=== PATIENT | female | born 1980 | race Caucasian/White ===

== ENCOUNTER 2020-04-25 17:02 | Emergency (ER) | payer OTHER, SELFPAY ==
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
--- NOTE | ~2020-04-25 | XR_ITS ---
EXAMINATION: XR lumbar spine 2-3V DATE: 04/25/2020 18:33 INDICATION: Low back pain. TECHNIQUE: 3 views of lumbar spine were obtained. COMPARISON: None. FINDINGS: Bone alignment is normal. Vertebral body heights and intervertebral disc heights are normal . The facet joints are unremarkable. IMPRESSION: 1. Normal lumbar spine. Reviewed, dictated and finalized at location A. IMPRESSION: 1. Normal lumbar spine.
--- NOTE | ~2020-04-25 | XR_ITS ---
EXAMINATION: XR thoracic spine 3V DATE: 04/25/2020 18:34 INDICATION: Thoracic back pain. TECHNIQUE: 3 views of thoracic spine were obtained. COMPARISON: None. FINDINGS: There is 3 degrees dextrocurvature of thoracic spine. Vertebral body heights and interverte bral disc heights are normal. There are endplate osteophytes at multiple levels. IMPRESSION: 1. Mild thoracic spondylosis. Reviewed, dictated and finalized at location A.
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
[2020-04-25 17:43] VITALS: BP 118/81; PULSE 81; RESP 20; TEMP 36.7; O2SAT 99
[2020-04-25 19:29] VITALS: BP 120/74; PULSE 81; RESP 20; TEMP 36.7; O2SAT 99
== END 2020-04-25 19:31 | disposition home or self-care (01) ==
PROVIDERS: Emergency Provider Emergency Medicine
DX: S16.1XXA Strain of muscle, fascia and tendon at neck level, initial encounter (principal); S29.012A Strain of muscle and tendon of back wall of thorax, initial encounter; S39.012A Strain of muscle, fascia and tendon of lower back, initial encounter; F17.200 Nicotine dependence, unspecified, uncomplicated; M47.814 Spondylosis without myelopathy or radiculopathy, thoracic region; M47.812 Spondylosis without myelopathy or radiculopathy, cervical region; V49.40XA Driver injured in collision with unspecified motor vehicles in traffic accident, initial encounter
CPT/HCPCS: 72072; 72100; 72125; 99284

== ENCOUNTER 2020-09-06 15:15 | Outpatient (CLI) | payer OTHER, SELFPAY ==
--- NOTE | ~2020-09-06 | US_ITS ---
EXAMINATION: US OB <= 14 weeks fetus DATE: 09/06/2020 15:52 INDICATION: Encounter for first trimester . TECHNIQUE: Real-time transabdominal pelvic ultrasound was performed. COMPARISON: None. FINDINGS: The uterus measures 11.3 x 6.9 x 7.3 cm. There is an intrauterine gestational sac. A yolk sac is iden tified. The crown rump length measures 2.4 cm, which correlates with an estimated gestational age of 9 weeks and 1 day(s) (+/-) 6 day(s). heart motion is identified measuring 161 beats per minute (bpm) by M-mode Doppler. The ovaries are not visualized. There is no free fluid in the pelvis. IMPRESSION: 1. Single living intrauterine gestation with estimated date of delivery of 04/10/2021. Reviewed, dictated and finalized at location A. IMPRESSION: 1. Single living intrauterine gestation with estimated date of delivery of 03/17.
== END 2020-09-06 15:16 | disposition home or self-care (01) ==
LOC: ANHIMG 15:18
PROVIDERS: Visit Provider Obstetrics & Gynecology
DX: Z34.90 Encounter for supervision of normal pregnancy, unspecified, unspecified trimester (principal); Z3A.00 Weeks of gestation of pregnancy not specified
CPT/HCPCS: 76801

== ENCOUNTER 2020-11-01 10:42 | Outpatient (CLI) | payer OTHER, SELFPAY ==
--- NOTE | ~2020-11-01 | US_ITS ---
EXAMINATION: US OB /maternal detail DATE: 11/01/2020 12:27 INDICATION: survey TECHNIQUE: Multiple obstetric sonographic images performed. FINDINGS: 09/06/2020 There is a single living fetus in variable presentation. The placenta is posterior without placenta previa. Amniotic fluid volume is normal. JESSE measures 10.1 cm cm. cardiac activity and movement is noted with a heart rate of beats per minute. The following anatomy was identified as normal: 4 chamber heart 3 vessel cord cord insertion kidneys urinary bladder stomach spine diaphragm ventricles cisterna magna cerebellum The ventricular outflow tracts are not well visualized. The following biometric data were obtained: BPD: 36mm corresponds to gestational age 17 weeks 0 days. Head circumference: 147 mm corresponds to gestational age 17 weeks 6 days. Abdominal circumference: 118 mm corresponds to gestational age 17 weeks 4 days. Femur length: 25 mm corresponds to gestational age 17 weeks 4 days. Head circumference to abdominal circumference ratio: 1.25 (normal range for expected gestational age is 1.08-1.28). Estimated weight: 201 grams +/- 30 grams using Hadlock method. IMPRESSION: 1: Single living intrauterine with an estimated gestational age of 17weeks 1days by initial ultrasound measurements, with an EDC of 04/10/2021 in . Normal presentation. 2. survey limited for evaluation of the ventricular outflow tracts. Otherwise, unremarkable fe ventura survey. Reviewed, dictated and finalized at location A. GE REGISTER NURSE IMPRESSION: 1: Single living intrauterine with an estimated gestational age of 17 weeks 1days by initial ultrasound measurements, with an EDC of 04/10/2021 in . N ormal presentation. 2. survey limited for evaluation of the ventricular outflow tracts. Othe rwise, unremarkable survey.
== END 2020-11-01 10:43 | disposition home or self-care (01) ==
PROVIDERS: Visit Provider Obstetrics & Gynecology
DX: Z34.92 Encounter for supervision of normal pregnancy, unspecified, second trimester (principal); Z3A.17 17 weeks gestation of pregnancy
CPT/HCPCS: 76805

== ENCOUNTER 2021-02-19 17:11 | Observation (INO) | payer OTHER, SELFPAY ==
--- NOTE | ~2021-02-19 | US_ITS ---
EXAMINATION: US OB BPP wo non-stress DATE: 02/19/2021 18:19 INDICATION: contractions during third trimester TECHNIQUE: Real-time pelvic ultrasound was performed. The interpreting radiologist was not present fo r the study. COMPARISON: None. FINDINGS: There is a single living fetus in vertex presentation. The placenta is posterior. heart rate is 124 beats per minute (bpm). Biophysical profile performed by the technologist: breathing (30 sec sustained breathing in 30 minutes): 2 out of 2 movement (3 gross body movements in 30 minutes): 2 out of 2 tone (one episode of eejwptd-uixmblekt-lhxcdgu limb movement): 2 out of 2 Amniotic fluid pocket (2 cm): 2 out of 2 Total score: 8 out of 8 IMPRESSION: 1. Single living fetus in vertex presentation. 2. Biophysical profile 8 out of 8. Reviewed, dictated and finalized at location A.
[2021-02-19 17:26] VITALS: BP 116/76; PULSE 98
[2021-02-19 17:31] VITALS: BP 125/95; PULSE 99
[2021-02-19 17:45] VITALS: BP 116/71; PULSE 85
[2021-02-19] MEDS: BETAMETHASONE SOD PHOS/ACETATE 30 MG/5 ML VIAL 12 MG IM (17:50)
[2021-02-19 17:55] VITALS: BMI 46.6
--- NOTE | 2021-02-19 17:55 | OBADM ---
This patient, Orquidea Jara, admitted to the OB room OB Post [facility] for observation. Patient/family oriented to hospital policies and general routines including ID bracelet, bed and alarms, visiting hours, pain management, procedures, bathroom and other care routines, personal items, smoking policy, room service/diet, and visiting hours. Patient/Family are encouraged to report perceived risks to care and to ask questions if they do not understand what they are told or what they should do.
[2021-02-19 18:05] VITALS: BP 116/71
--- NOTE | 2021-02-21 00:45 | PM.OBTRLD ---
OB - Triage/Final Diagnosis Visit Information Comments/Additional reasons for admission: I have assessed the risk for this patient, Orquidea Jara, and determined that she would benefit from observation care. Final Diagnosis (1) labor in third trimester: Code(s): O60.03 - labor without delivery, third trimester Status: Acute (2) Polyhydramnios affecting in third trimester: Code(s): O40.3XX0 - Polyhydramnios, third trimester, not applicable or unspecified Status: Acute (3) Breech presentation: Code(s): O32.1XX0 - Maternal care for breech presentation, not applicable or unspecified Status: Acute (4) LGA (large for gestational age) fetus: Status: Acute
== END 2021-02-19 18:34 | disposition home or self-care (01) ==
PROVIDERS: Admitting Provider Obstetrics & Gynecology; Visit Provider Obstetrics & Gynecology
DX: O60.03 Preterm labor without delivery, third trimester (principal); O40.3XX0 Polyhydramnios, third trimester, not applicable or unspecified; O32.1XX0 Maternal care for breech presentation, not applicable or unspecified; Z3A.00 Weeks of gestation of pregnancy not specified
CPT/HCPCS: 59025; 76819; 96372; G0378; G0379; J0702

== ENCOUNTER 2021-02-20 17:24 | Outpatient (CLI) | payer OTHER, SELFPAY ==
[2021-02-20] MEDS: BETAMETHASONE SOD PHOS/ACETATE 30 MG/5 ML VIAL 12 MG IM (17:45)
== END 2021-02-20 17:25 | disposition home or self-care (01) ==
LOC: ANHOBOP 17:30
PROVIDERS: Visit Provider Obstetrics & Gynecology
DX: Z34.90 Encounter for supervision of normal pregnancy, unspecified, unspecified trimester (principal); Z3A.00 Weeks of gestation of pregnancy not specified
CPT/HCPCS: 96372; J0702

== ENCOUNTER 2021-02-23 05:28 | Outpatient (CLI) | payer OTHER, SELFPAY ==
[2021-02-23 06:11] VITALS: PULSE 78; O2SAT 96
--- NOTE | 2021-02-23 06:20 | PC.NURSE ---
Called Dr. Garcia with pt status. Pt states that she had a wet spot on the bed after her shower. No further leaking noted per pt. Rom plus negative. No contractions seen on monitor or felt per pt. Reactive tracing. March D/C home.
--- NOTE | 2021-02-23 07:37 | PM.OBTRLD ---
OB - Triage/Final Diagnosis Visit Information Comments/Additional reasons for admission: I have assessed the risk for this patient, Orquidea Jara, and determined that she would benefit from observation care. Evaluation Vital signs: Vital Signs - 24 hr 02/23/21 06:11 Pulse Oximetry 96 Final Diagnosis (1) False labor: Code(s): O47.9 - False labor, unspecified Status: Acute
== END 2021-02-23 06:30 | disposition home or self-care (01) ==
LOC: ANHOBOP 06:31 → ANHLDR 06:47
PROVIDERS: Visit Provider Obstetrics & Gynecology
DX: O46.90 Antepartum hemorrhage, unspecified, unspecified trimester (principal); Z3A.00 Weeks of gestation of pregnancy not specified
CPT/HCPCS: 59025; 84112; 99199

== ENCOUNTER 2021-04-03 18:18 | Observation (INO) | payer OTHER, SELFPAY ==
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
[2021-04-03 19:46] VITALS: BMI 48.3
--- NOTE | 2021-04-03 19:46 | LDADM ---
This patient, Orquidea Jara, was admitted to Labor/Delivery/Recovery 120 on 04/03/21 at 18:18. Plans for labor, pain management and were discussed with patient. Patient/family oriented to hospital policies and general routines including ID bracelet, bed and alarms, visiting hours, pain management, procedures, bathroom and other care routines, personal items, smoking policy, room service/diet and guest tray routines, infant security routines, and visiting hours. Patient/Family are encouraged to report perceived risks to care and to ask questions if they do not understand what they are told or what they should do. See OBIX for further documentation.
--- NOTE | 2021-04-03 20:20 | PM.OBTRLD ---
OB - Triage/Final Diagnosis Visit Information Comments/Additional reasons for admission: I have assessed the risk for this patient, Orquidea Jara, and determined that she would benefit from observation care. Final Diagnosis (1) False labor after 37 weeks of gestation without delivery: Code(s): O47.1 - False labor at or after 37 completed weeks of gestation Status: Acute
== END 2021-04-03 19:37 | disposition home or self-care (01) ==
PROVIDERS: Admitting Provider Obstetrics & Gynecology; Visit Provider Obstetrics & Gynecology
DX: O47.1 False labor at or after 37 completed weeks of gestation (principal); Z3A.39 39 weeks gestation of pregnancy
CPT/HCPCS: 59025; G0378; G0379

== ENCOUNTER 2021-04-04 07:03 | Inpatient (IN) | payer OTHER, SELFPAY ==
--- NOTE | 2021-03-23 15:25 | PC.NURSE ---
VERIFIED WITH OR SCHEDULE AND PATIENT --C/S WITH TUBAL ON 04/05/21 AT 1030 PATIENT GIVEN REQUISITION FOR LAB DRAW ON 04/04/21
--- NOTE | 2021-04-03 19:19 | HP_ITS ---
This report was moved to the correct visit, [id number] on 04/09/21. Original report was signed by Kyle Garcia MD on 04/03/211927. H&P: HPI History of Present Illness Date/Time: 04/03/21 19:19 41 y/o presents for REPEAT C SECTION AND BILATERAL TUBAL STERILIZATION at 39weeks. complicated by AMA, HSV, GBS, depression, previous C- section (x 1), and COVID (11/12/2020). I EXPLAINED HER CONDITION PROCEDURE AND RISKS INVOLVED INCLUDING BUT NOT LIMITED TO bleeding infection injury to bladder bowel baby pelvic vessels DVT pneumonia wound infection UTI risk of anesthesia risk of hemorrhage she understands accepts and agrees to proceed [facility] tubal consent forms signed and forwarded Chief Complaint: Repeat with bilateral tubal sterilization Term Review of Systems Review of Systems: All systems reviewed & are unremarkable except as noted in HPI and below Constitutional: Constitutional: Reports no additional constitutional complaints Eyes: Eyes: Reports no additional eye complaints ENT: Reports system reviewed and no additional complaints, except as documented Cardiovascular: Cardiovascular: Reports no additional cardiovascular complaints Respiratory: Respiratory: Reports no additional respiratory complaints Gastrointestinal: Gastrointestinal: Reports no additional gastrointestinal complaints Genitourinary: Genitourinary: Reports no additional female genitourinary complaints Musculoskeletal: Musculoskeletal: Reports no additional musculoskeletal complaints Integumentary/Breasts: Skin/Breast: Reports system reviewed and no additional complaints, except as docu Neurologic: Reports system reviewed and no additional complaints, except as documented Psychiatric: Psychiatric: Reports no additional psychiatric complaints Endocrine: Endocrine: Reports no additional endocrine complaints Hematologic/Lymphatic: Hematologic/Lymphatic: Reports no additional hematologic/lymphatic complaints Allergic/Immunologic: Allergic/Immunologic: Reports no additional allergic/immunologic complaints [facility] Past Medical History Medical History (Updated 04/03/21 @ 19:24 by Kyle Garcia MD) Advanced maternal age (AMA) in Depression Encounter for female sterilization procedure macrosomia GBS (group B Streptococcus carrier), +RV culture, currently Genital herpes Obesity Term Surgical History Surgical History (Updated 04/03/21 @ 19:24 by Kyle Garcia MD) Delivery by section Previous section Family History Family History (Updated 03/23/21 @ 15:04 by Melann Michael, RN) Father Diabetes mellitus Amputated below knee Amputated at left ankle Cerebrovascular accident Acute myocardial infarction Mother Cancer Other Patient's mother is Social History Social History (Updated 04/03/21 @ 19:24 by Kyle Garcia MD) Smoking status: Current every day smoker Second hand tobacco smoke exposure: Yes Alcohol intake: former Substance use: former Living arrangements: with family Occupation/Education: unemployed Gender identity (if verbalized by the patient): Female Sexual Orientation (if Verbalized by the Patient): Straight or Heterosexual Spiritual care concerns: No Agree to blood products: Yes Meds Home Medications and Allergies Home Medications Medication Instructions Recorded Confirmed Type albuterol sulfate 1 inh INHALATION QID PRN 03/23/21 03/23/21 History calcium carbonate-vitamin D3 1 tablet PO BID 03/23/21 03/23/21 Hist
[2021-04-04] VITALS (51 sets, daily range): BP systolic 86–116; BP diastolic 47–95; PULSE 58–122; RESP 16–20; TEMP 36.2–36.6; O2SAT 95–100; BMI 48.2
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
--- NOTE | 2021-04-04 07:10 | PM.PROC ---
Procedure Note - Detailed Date of procedure: 04/04/21 Pre-op diagnosis: c/s (1) Term : Code(s): Z34.90 - Encounter for supervision of normal , unspecified, unspecified trimester Status: Acute (2) Delivery by section: Status: Acute Assessment and Plan: Repeat low-transverse section under spinal anesthesia (3) Encounter for female sterilization procedure: Code(s): Z30.2 - Encounter for sterilization Status: Acute Assessment and Plan: Bilateral tubal sterilization under spinal anesthesia (4) Obesity: Code(s): E66.9 - Obesity, unspecified Status: Acute (5) macrosomia: Code(s): O36.60X0 - Maternal care for excessive growth, unspecified trimester, not applicable or unspecified Status: Acute (6) GBS (group B Streptococcus carrier), +RV culture, currently : Code(s): O99.820 - Streptococcus B carrier state complicating Status: Acute (7) Advanced maternal age (AMA) in : Status: Acute (8) Depression: Code(s): F32.9 - Major depressive disorder, single episode, unspecified Status: Acute (9) Genital herpes: Code(s): A60.00 - Herpesviral infection of urogenital system, unspecified Status: Acute Post-op diagnosis: same ( delivered viable male and placenta successful tubal sterilization) Procedure performed: repeat low-transverse section with delivery of viable male and placenta Bilateral tubal sterilization with bilateral salpingectomy Description of procedure: informed consent obtained patient taken to the operating room where she was given a spinal anesthetic placed in the supine position a Camacho catheter inserted her abdomen was prepped and draped in the usual sterile fashion with the traxi device. Time-out was performed elliptical incision was made around the old scar and the old scar was excised using electrocautery. The fascia was incised transversely undermined inferior and superior the rectus muscles were midline and the peritoneum was entered. Transverse incision was made to the uterus and extended bilaterally digitally. I encountered a transverse lie and tried to convert baby to the vertex presentation which was unsuccessful and with much difficulty finally converting the baby to a james breech position and delivered the buttocks 1st legs in abdomen swept the arms across the chest anterior length in the cord and then delivered the vertex with the Joan min maneuver. The baby was stimulated bulb suction cord clamped and cut and baby was handed to the nursery nurse in attendance scores 8 and 9 weight 8 lb 4 oz normal transition normal exam taken to the nursery in stable condition. Placenta cord gases cord blood obtained and then 10 units Pitocin given into the myometrium and the placenta was then delivered intact with a three-vessel cord. The uterus was cleansed of blood clots membranes and externalized. The uterine incision was repaired in 2 layers with 0 Vicryl in a running interlocking fashion 2nd being an imbricating stitch in a running fashion. Hemostasis excellent along the uterine incision. Bilateral tubal sterilization was then performed in a bilateral sequential fashion the fallopian tubes were grasped with Walden clamps traced out to the fimbria. Mesial salpinx endo coagulated peons were placed at the proximal tubes arcuate vessel and the fimbria ovarian vessels. The fallopian tubes were excised using electrocautery and sent to pathology. Two 0 silk sutures were used doubly around the pedicles and electrocauterized and hemostasis was excellent. Irrigation was performed the uterus was returned to the peritoneal cavity the sponge needle counts correct. Anterior peritoneum and rectus muscles reapproximated with 0 Vicryl suture running fashion. Fascia was closed with 2. Quill S RS system bilaterally. Norma
--- NOTE | 2021-04-04 07:10 | PM.OBDSVD ---
DS: Admitting Diagnosis Admitting Diagnosis Admitting Diagnosis: (1) Term : Code(s): Z34.90 - Encounter for supervision of normal , unspecified, unspecified trimester Status: Acute (2) Delivery by section: Status: Acute Assessment and Plan: Repeat low-transverse section under spinal anesthesia (3) Encounter for female sterilization procedure: Code(s): Z30.2 - Encounter for sterilization Status: Acute Assessment and Plan: Bilateral tubal sterilization under spinal anesthesia (4) Obesity: Code(s): E66.9 - Obesity, unspecified Status: Acute (5) macrosomia: Code(s): O36.60X0 - Maternal care for excessive growth, unspecified trimester, not applicable or unspecified Status: Acute (6) GBS (group B Streptococcus carrier), +RV culture, currently : Code(s): O99.820 - Streptococcus B carrier state complicating Status: Acute (7) Advanced maternal age (AMA) in : Status: Acute (8) Depression: Code(s): F32.9 - Major depressive disorder, single episode, unspecified Status: Acute (9) Genital herpes: Code(s): A60.00 - Herpesviral infection of urogenital system, unspecified Status: Acute DS: Discharge Diagnosis Discharge Diagnosis (1) Term delivered: Code(s): O80 - Encounter for full-term uncomplicated delivery Status: Acute (2) Delivery by section: Status: Acute (3) Encounter for female sterilization procedure: Code(s): Z30.2 - Encounter for sterilization Status: Acute (4) Obesity: Code(s): E66.9 - Obesity, unspecified Status: Acute (5) macrosomia: Code(s): O36.60X0 - Maternal care for excessive growth, unspecified trimester, not applicable or unspecified Status: Acute (6) GBS (group B Streptococcus carrier), +RV culture, currently : Code(s): O99.820 - Streptococcus B carrier state complicating Status: Acute (7) Advanced maternal age (AMA) in : Status: Acute (8) Depression: Code(s): F32.9 - Major depressive disorder, single episode, unspecified Status: Acute (9) Genital herpes: Code(s): A60.00 - Herpesviral infection of urogenital system, unspecified Status: Acute OB - DS: Summary Hospital Course Time spent discussing smoking cessation with patient: 3 to 10 minutes OB Procedures : Ultrasound OB Procedures Intrapartum: , Tubal ligation and GBS prophylaxis OB Procedures: : P.P. tubal ligation Peripartum Data Delivery Method: Section Laceration Description: None Episiotomy description: None Procedures: Procedures Operation Date: 04/05/21 10:30 Repeat Low transverse C section with delivery of Viable male and placenta Bilateral tubal sterilization with bilateral salpingectomy complications: none 1: Gender: Male Disposition of : home Status at Discharge Functional status at discharge: independent ambulation Overall status at discharge: patient is back to baseline Time Spent with Patient Time attestation: Total time spent providing and/or coordinating discharge services: Time spent: Less than 30 minutes Exam Const: General: cooperative, healthy appearing, comfortable, no acute distress, well developed, alert, awake and Physically active Nutritional Appearance: average body habitus Orientation/consciousness: patient oriented x3 Limitations: no limitations HENMT: Head: normal to inspection Eyes: General: appearance normal, both eyes and all related structures Neck: Neck: normal visual inspection and full ROM Chest: Chest palpation & inspection: normal inspection of the chest Resp: Effort & Inspection: normal respiratory effort Auscultation: clear to auscultation bilaterally Cardio: Palpatio
[2021-04-04 07:45] LABS: Basophils Percent Auto 0.4 % (0.2-1.2); Eosinophils Absolute Auto 0.1 K/mm3 (0-0.3); Eosinophils Percent Auto 0.5 % (0-4.4); Hemoglobin 11.9 g/dL (12.0-15.0); Immature Granulocyte Absolute 0.04 K/mm3 (0.00-0.031); Immature Granulocyte Percent A 0.4 % (0-0.5); Lymphocytes Percent Auto 16.9 % (18.3-44.2); Mean Corpuscular HGB Conc 33.1 g/dl (32-36); Mean Corpuscular Hemoglobin 28.8 pg (26-34); Mean Corpuscular Volume 87.2 fl (80-100); Mean Platelet Volume 9.8 fl (7.4-10.4); Monocytes Absolute Auto 0.6 K/mm3 (0.1-0.6); Monocytes Percent Auto 6.3 % (2.6-8.5); Neutrophils Absolute Auto 7.2 K/mm3 (1.3-6.7); Neutrophils Percent Auto 75.5 % (45.5-73.1); Platelet Count Result 209 k/mm3 (150-375); Red Blood Count 4.13 M/mm3 (4.2-5.4); Red Cell Distribution Width 13.7 % (11.5-14.5); White Blood Count 9.5 K/mm3 (4.5-10.0)
[2021-04-04] MEDS: LACTATED RINGERS 1,000 ML 125 ML IV CONT (07:45)
--- NOTE | 2021-04-04 08:01 | WPDANESEPPF ---
Anes - Initial Pre Proc Eval Procedure: Operation Date: 04/05/21 10:30 Proposed Procedures p Repeat Section With Bilateral Salpingectomy For Sterilization - Kyle Garcia MD Date/Time: 04/04/21 08:01 Surgeon: Kyle Garcia MD Pre Op Diagnosis: c/s Patient Data Age: 41 Gender: F Height: 1.55 m Weight: 115.91 kg Last Vital Signs Pulse 82 04/04/21 07:23 BP 112/63 04/04/21 07:23 Allergies Allergy/AdvReac Type Severity Reaction Status Date / Time No Known Allergies Allergy Verified 03/23/21 14:49 Home Medications Medication Instructions Recorded Confirmed Type albuterol sulfate 1 inh INHALATION QID PRN 03/23/21 03/23/21 History calcium carbonate-vitamin D3 1 tablet PO BID 03/23/21 03/23/21 History cetirizine [Zyrtec] 10 mg PO DAILY PRN 03/23/21 03/23/21 History fluticasone propionate 1 spray INTRANASAL Q12H 03/23/21 03/23/21 History nifedipine [Procardia XL] 30 mg PO DAILY 03/23/21 03/23/21 History omeprazole 40 mg PO DAILY 03/23/21 03/23/21 History prenat.vits,antonino,xfj-vsrb-hokfu 1 tablet PO DAILY 03/23/21 03/23/21 History Laboratory Tests 04/04/21 04/04/21 04/04/21 07:37 07:37 07:37 WBC 9.5 K/mm3 K/mm3 (4.5-10.0) RBC 4.13 M/mm3 L M/mm3 (4.2-5.4) Hgb 11.9 g/dL L g/dL (12.0-15.0) Hct 36.0 % L % (37.0-47.0) MCV 87.2 fl fl (80-100) MCH 28.8 pg pg (26-34) MCHC 33.1 g/dl g/dl (32-36) RDW 13.7 % % (11.5-14.5) Plt Count 209 k/mm3 k/mm3 (150-375) MPV 9.8 fl fl (7.4-10.4) Immature Gran % (Auto) 0.4 % % (0-0.5) Neut % (Auto) 75.5 % H % (45.5-73.1) Lymph % (Auto) 16.9 % L % (18.3-44.2) Milam % (Auto) 6.3 % % (2.6-8.5) Eos % (Auto) 0.5 % % (0-4.4) Baso % (Auto) 0.4 % % (0.2-1.2) Lymph # (Auto) 1.60 K/mm3 K/mm3 (0.9-3.2) Milam # (Auto) 0.6 K/mm3 K/mm3 (0.1-0.6) Eos # (Auto) 0.1 K/mm3 K/mm3 (0-0.3) Baso # (Auto) 0.0 K/mm3 K/mm3 (0.0-0.1) Abs Immat Gran (auto) 0.04 K/mm3 H K/mm3 (0.00-0.031) Absolute Neuts (auto) 7.2 K/mm3 H K/mm3 (1.3-6.7) Absolute Nucleated RBC 0.0 K/mm3 K/mm3 (0.0-0.012) Nucleated RBC % 0.0 % % (0.0-0.2) RPR Pending HIV 1&2 Ab/P24 Ag 4thGn Pending Patient hx anesthesia problems: none Family hx anesthesia problems: none PMFSH Past Medical History Medical History (Updated 04/04/21 @ 08:17 by Zaid Olea DO) Advanced maternal age (AMA) in Asthma Depression Encounter for female sterilization procedure macrosomia GBS (group B Streptococcus carrier), +RV culture, currently Genital herpes Obesity Term Surgical History Surgical History (Updated 04/03/21 @ 19:24 by Kyle Garcia MD) Delivery by section Previous section Family History Family History (Updated 03/23/21 @ 15:04 by Joya Rodriguez RN) Father Diabetes mellitus Amputated below knee Amputated at left ankle Cerebrovascular accident Acute myocardial infarction Mother Cancer Other Patient's mother is Social History Social History (Updated 04/03/21 @ 19:24 by Kyle Garcia MD) Smoking status: Former smoker Second hand tobacco smoke exposure: Yes Alcohol intake: former Substance use: former Gender identity (if verbalized by the patient): Female Spiritual care concerns: No Agree to blood products: Yes Anes - Eval Final PreProcedure Day of Procedure 04/04/21 08:01 Patient weight: morbidly obese Heart: regular rate and rhythm Lungs: clear to auscultation and normal air movement Airway: Mallampati scale class III Neurological: alert and oriented Last oral intake: >/= 8 hours ASA classification: III Emergent: no Anesthetic plan: proceed Anesthesia type and monitoring: micki
[2021-04-04 08:38] LABS: HIV 1/2 Ab P24 Ag Result Negative (Negative)
[2021-04-04 10:04] LABS: Amphetamine Screen Urine Negative (Negative); Barbiturate Screen Urine Negative (Negative); Benzodiazepines Screen Urine Negative (Negative); Cannabinoid Screen Urine Negative (Negative); Cocaine Screen Urine Negative (Negative); Methadone Screen Urine Negative (Negative); Opiate Screen Urine Negative (Negative); Phencyclidine Screen Urine Negative (Negative)
--- NOTE | 2021-04-04 10:25 | PM.OBPRVD ---
OB - Delivery Note Procedure Delivery date: 04/04/21 Procedure: Procedures Operation Date: 04/05/21 10:30 Repeat low-transverse section with delivery of viable male infant and placenta Bilateral tubal sterilization with bilateral salpingectomy events: Previous Intrapartal events: Other ( malpresentation transverse lie back down) Induction method: none Delivery monitor: external FHT and external uterine Route of delivery: ( repeat low-transverse with bilateral tubal sterilization) Episiotomy description: None Laceration Description: None Specimen: Yes Anesthesia type: Spinal Disposition: floor Complications: none [place] Baby Date of : 04/04/21 Time of : 09:39 Weeks of gestation at delivery: 39 Infant gender: Male Weight (pounds): 8 Weight (ounces): 4 presentation: transverse Placenta delivery description: Manual Removal and Normal Configuration cord vessel description: 3 Vessels score one minute: 8 score five minutes: 9 Narrative: see op report
[2021-04-04] MEDS: OXYTOCIN 30 UNITS/NS 500 ML 30 UNITS/500 ML BAG 125 UNITS IV CONT (11:01)
[2021-04-04] MEDS: ONDANSETRON INJ 4 MG/2 ML VIAL IV PUSH ×2 (12:02→17:56)
--- NOTE | 2021-04-04 12:49 | OBPPTRN ---
Patient transferred to post room # 279 via bed. Oriented to unit, room, information board, rooming in, admission packet and security measures. Patient verbalizes understanding.
--- NOTE | 2021-04-04 14:46 | PC.NURSE ---
Mother called out for assist to be returned. Mother reports had a bottle for first feeding and wishes to put to breast. Observed infant may have tight frenulum. Mother reports this is 6th child 5th to breastfeed. Reviewed infant feeding cues, frequencies, duration of feedings, feeding elimination flow sheet, and signs of adequate intake. Demonstrated stimulation techniques to wake infant for feeding. Assisted with to breast. Reviewed positioning/alignment in cross cradle, holding breast in ?U? hold and guided asymmetrical latch on. made attempts and would hold nipple in with no suckling noted. Suggested mother skin to skin and attempt again in 15-20 minutes.
[2021-04-04] MEDS: DEXTROSE 5%/0.45% SOD CHL 1,000 ML 125 ML IV CONT (14:57)
[2021-04-04] MEDS: KETOROLAC 30 MG/ML VIAL (*BKC) IV PUSH (17:55)
[2021-04-04] MEDS: DEXTROSE 5%/LACTATED RINGERS 1,000 ML 999 ML IV CONT (19:00)
[2021-04-04] MEDS: METOCLOPRAMIDE HCL INJ 10 MG/2 ML VIAL IV PUSH (19:18)
[2021-04-04] MEDS: DEXTROSE 5%/LACTATED RINGERS 1,000 ML 150 ML IV CONT (20:14)
[2021-04-05] VITALS: BP 103/64; PULSE 69; RESP 16; TEMP 36.5; O2SAT 98
[2021-04-05] MEDS: KETOROLAC 30 MG/ML VIAL (*BKC) IV PUSH (00:23)
[2021-04-05] MEDS: DEXTROSE 5%/LACTATED RINGERS 1,000 ML 150 ML IV CONT (03:02)
[2021-04-05 03:50] VITALS: BP 94/50; PULSE 68; RESP 16; TEMP 36.6; O2SAT 97
[2021-04-05 05:29] LABS: Basophils Percent Auto 0.2 % (0.2-1.2); Eosinophils Percent Auto 0.2 % (0-4.4); Hematocrit 29.5 % (37.0-47.0); Hemoglobin 9.5 g/dL (12.0-15.0); Immature Granulocyte Absolute 0.06 K/mm3 (0.00-0.031); Immature Granulocyte Percent A 0.5 % (0-0.5); Lymphocytes Absolute Auto 1.84 K/mm3 (0.9-3.2); Lymphocytes Percent Auto 14.3 % (18.3-44.2); Mean Corpuscular HGB Conc 32.2 g/dl (32-36); Mean Corpuscular Volume 89.9 fl (80-100); Mean Platelet Volume 9.8 fl (7.4-10.4); Monocytes Absolute Auto 0.9 K/mm3 (0.1-0.6); Monocytes Percent Auto 6.6 % (2.6-8.5); Neutrophils Percent Auto 78.2 % (45.5-73.1); Platelet Count Result 186 k/mm3 (150-375); Red Blood Count 3.28 M/mm3 (4.2-5.4); White Blood Count 12.8 K/mm3 (4.5-10.0)
--- NOTE | 2021-04-05 07:55 | PC.NURSE ---
Observed mother is able to independently latch with appropriate positioning/alignment. She denies any nipple discomfort, is feeding as required and waking infant to feed if needed. Mother chooses to supplement at times. Infant is currently meeting outcomes for weight, output, jaundice and feeding frequencies. Mother states she does not require feeding assist/education at this time. Reviewed resources in the Mom/Baby guide. Instructed mother to call out for future feedings if assistance is needed.
[2021-04-05 08:05] VITALS: BP 105/65; PULSE 88; RESP 18; TEMP 36.7; O2SAT 98
[2021-04-05 08:30] LABS: Rapid Plasma Reagin Non-Reactive (NonReactive)
[2021-04-05] MEDS: DOCUSATE SODIUM 100 MG CAPSULE PO ×2 (08:41→15:56)
[2021-04-05] MEDS: MULTIVIT/MIN/PREN/FOL AC/IRON TABLET 1 TAB PO (08:41)
[2021-04-05] MEDS: IBUPROFEN 600 MG TABLET PO ×3 (08:41→22:32)
[2021-04-05] MEDS: POLYSACCHARIDE IRON COMPLEX 150 MG CAPSULE PO ×2 (08:41→15:56)
[2021-04-05] MEDS: HYDROcodone/acetaminophen (*CRX) 5-325 MG TABLET 1 TAB PO ×2 (08:41→15:55)
[2021-04-05] MEDS: LANOLIN (LANSINOH) 7.5 GM CREAM 1 APPLIC TOPICAL (08:51)
--- NOTE | 2021-04-05 09:49 | WPDANLDNPN2 ---
Anes-Prog Note L&D-Neuraxial Date/Time: 04/05/21 09:49 Neuraxial medications: intrathecal PF morphine Opiod-related complaints: none Patient feedback: Patient satisfied with post-operative pain management.
--- NOTE | 2021-04-05 09:49 | WPDANLDPN2 ---
Anes-Prog Note L&D Date/Time: 04/05/21 09:49 Comfortable throughout: labor Neuraxial method: epidural Epidural/Spinal procedure site: clean & non-tender Neuro status: Neuro function grossly intact. Cardiovascular status: normal Respiratory status: normal Airway patency: baseline Mental status: baseline Post-Op hydration status: normal Vital Signs: Last Vital Signs Temp 36.6 C 04/05/21 03:50 Pulse 68 04/05/21 03:50 Resp 16 04/05/21 03:50 BP 94/50 L 04/05/21 03:50 Pulse Ox 97 04/05/21 03:50 Pain score (VAS): 0 I/O: Intake & Output 04/04/21 04/05/21 04/05/21 23:59 07:59 15:59 Intake Total 2200 1745 Output Total 650 725 250 Balance 1550 1020 -250 Post-procedural complaints: none Patient feedback: Patient satisfied with anesthetic care.
[2021-04-05 19:00] VITALS: BP 108/59; PULSE 86; RESP 16; TEMP 36.2; O2SAT 99
[2021-04-05] MEDS: HYDROcodone/acetaminophen (*CRX) 10-325 MG TABLET 1 TAB PO ×2 (19:23→22:32)
--- NOTE | 2021-04-05 20:00 | PC.NURSE ---
Patient viewed the discharge video Mother & Baby Care, The First Two Weeks online. Patient was given the opportunity and encouraged to ask questions. Patient verbalized understanding of information shared and has been given the mother/baby guide for home reference.
[2021-04-06] MEDS: HYDROcodone/acetaminophen (*CRX) 10-325 MG TABLET 1 TAB PO ×2 (04:01→10:55)
[2021-04-06] MEDS: IBUPROFEN 600 MG TABLET PO ×2 (04:01→10:56)
--- NOTE | 2021-04-06 07:38 | P.DS_ITS ---
DS: Admitting Diagnosis Admitting Diagnosis Admitting Diagnosis: OB - DS: Summary OB Procedures : None OB Procedures Intrapartum: OB Procedures: : None Peripartum Data Procedures: Procedures Operation Date: 04/04/21 09:00 Actual Procedure Side Surgeon p Repeat Section With Bilateral Salpingectomy For Sterilization Kyle Garcia MD Time Spent with Patient Time attestation: Total time spent providing and/or coordinating discharge services: DS: Data Data Completed and Pending Pending studies at discharge: Pending at discharge 04/04/21 09:55 Surgical [PTH] Routine Labs on day of discharge: Labs from last 24 hours 04/04/21 07:37 RPR Non-reactive Discharge Plan Discharge Attending physician on discharge: Kyle Garcia Discharging Clinician: Kyle Garcia Anticipated Discharge Date/Time: 04/07/21 07:18 Patient Disposition: Home, Self-Care Activity: may shower, no straining, no driving, may drive after 2 weeks and as tolerated Diet: as tolerated and regular Wound Care Instructions: follow printed instructions Patient Instructions: Antibiotic Form Stand Alone Forms: General Discharge Information Follow-up/Referrals: Kyle Garcia MD [Physician] - 3 Weeks Discharge Medications: New hydrocodone-acetaminophen 5-325 mg Tablet 1 tablet PO Q6H PRN (Reason: breakthrough pain) Qty: 28 RF: 0 ibuprofen 600 mg Tablet 600 mg PO Q6H Qty: 90 RF: 2 Continued omeprazole 40 mg Capsule,Delayed Release(Dr/Ec) 40 mg PO DAILY RF: 0 albuterol sulfate 90 mcg/actuation Hfa Aerosol Inhaler 1 inh INHALATION QID PRN (Reason: Shortness Of Breath) RF: 0 fluticasone propionate 50 mcg/actuation Tracy,Suspension 1 spray INTRANASAL Q12H RF: 0 prenat.vits,antonino,hqe-reie-sscer Tablet 1 tablet PO DAILY RF: 0 calcium carbonate-vitamin D3 600 mg(1,500mg) -400 unit Tablet 1 tablet PO BID RF: 0 cetirizine [Zyrtec] 10 mg Tablet 10 mg PO DAILY PRN (Reason: Dyspnea) RF: 0 Discontinued nifedipine [Procardia XL] 30 mg Tablet Extended Release 24hr 30 mg PO DAILY RF: 0 Date of admission: 04/04/21 07:03 Primary Care Provider: PHYSICIAN,PLANT WRAPPER Admitting Provider: Kyle Garica Attending physician on admission: Kyle Garcia Condition: Stable
[2021-04-06] MEDS: DOCUSATE SODIUM 100 MG CAPSULE PO (10:55)
[2021-04-06] MEDS: MULTIVIT/MIN/PREN/FOL AC/IRON TABLET 1 TAB PO (10:55)
[2021-04-06] MEDS: POLYSACCHARIDE IRON COMPLEX 150 MG CAPSULE PO (10:56)
[2021-04-06 11:00] VITALS: BP 122/74; PULSE 86; PULSE 90; RESP 16; RESP 18; TEMP 36.5; O2SAT 98; O2SAT 99
== END 2021-04-06 13:20 | disposition home or self-care (01) | DRG 540 ==
LOC: ANHLDR 07:18 → ANHOB2 12:52
PROVIDERS: Admitting Provider Obstetrics & Gynecology; Visit Provider Obstetrics & Gynecology
DX: O34.211 Maternal care for low transverse scar from previous cesarean delivery (principal); Z37.0 Single live birth; Z3A.39 39 weeks gestation of pregnancy; O99.824 Streptococcus B carrier state complicating childbirth; Z86.16 Personal history of COVID-19; Z30.2 Encounter for sterilization; O99.344 Other mental disorders complicating childbirth; F32.9 Major depressive disorder, single episode, unspecified; O99.214 Obesity complicating childbirth; E66.01 Morbid (severe) obesity due to excess calories; O98.32 Other infections with a predominantly sexual mode of transmission complicating childbirth; A60.00 Herpesviral infection of urogenital system, unspecified; O36.63X0 Maternal care for excessive fetal growth, third trimester, not applicable or unspecified; O32.1XX0 Maternal care for breech presentation, not applicable or unspecified; O99.52 Diseases of the respiratory system complicating childbirth; J45.909 Unspecified asthma, uncomplicated
CPT/HCPCS: 36415; 80307; 85025; 86592; 86703; 86850; 86900; 86901; 88302; 88307; A9270; G0432; J0131; J1100; J1885; J2274; J2370; J2405; J2590; J2765; J7120; J7121

== ENCOUNTER 2025-06-18 22:44 | Emergency (ER) | payer SELFPAY ==
[2025-06-18 22:47] VITALS: BP 127/80; PULSE 71; RESP 18; TEMP 36.1; O2SAT 96
--- OUTSIDE RECORDS SUMMARY | 2025-06-18 22:47 | XMS_ITS | Clinical Summary ---
Author Organization [facility] Address [address] [place] [id number] Care Team Providers Care Frame Assembler Name Role Phone Evelyn Patel Primary Care Provi cookie Allergies No known active allergies Medications ketorolac (TORADOL) 10 mg tablet Take 1 tablet (10 mg total) by mouth every 6 (six) hours as needed for pain 20 tablet 10/23/2022 Active Social History Tobacco Use Types Packs/Day Years Used Date Smoking Tobacco: Never Assessed Personal Safety Answer Date Recorded Getting School Help Needed Not on file 01/16 Comments Unknown Sex and Gender Information Value Date Recorded Sex Assigned at Not on file Legal Sex Female 6:38 PM ARTS MANAGER Gender Identity Not on file Sexual Orientation Not on file Last Filed Vital Signs Vital Sign Reading Time Taken Comments Blood Pressure 133/83 10/23/2022 2:28 PM ARTS MANAGER Pulse 54 10/23/2022 2:28 PM ARTS MANAGER Temperature 37 C (98.6 F) 10/23/2022 11:01 AM ARTS MANAGER Respiratory Rate 16 10/23/2022 2:28 PM ARTS MANAGER Oxygen Saturation 100% 10/23/2022 2:28 PM ARTS MANAGER Inhaled Oxygen Concentration - - Weight 93 kg (205 lb) 10/23/2022 11:01 AM ARTS MANAGER Height 154.9 cm (5' 1) 10/23/2022 11:01 AM ARTS MANAGER Body Mass Index 38.73 10/23/2022 11:01 AM ARTS MANAGER Plan of Treatment Health Maintenance Due Date Last Done Comments Breast Cancer Screening-Mammogram 1982 Cervical Cancer Screening 1982 Depression Screening 1982 Hepatitis C Screening 1982 Varicella Vaccines (1 of 2 - 13+ 2-dose series) 1995 Hepatitis B Screening 02/06/2000 Regular Well Visit/Exam 18-64 02/06/2000 HPV Vaccines (1 - 3-dose SCD M series) 2009 Covid-19 Vaccine (3 - 4-2 5 season) 2024 01/02/2022, 12/12/2021 Influenza Vaccine (#1) 2025 , 01/15/2017 DTaP/Tdap/Td Vaccine (4 - Td or Tdap) 01/07/2031 01/07/2021, 06/18/2017, 07/13/2016 Pneumococcal vaccine <65 Aged Out No longer eligible based on patient's age to complete this topic Insurance Care Teams Frame Assembler Relationship Specialty Start Date End Date Evelyn Patel PA [address] [place] [id number] PCP - General Physician Pharmacist'S Aide 10/23/22
--- OUTSIDE RECORDS SUMMARY | 2025-06-18 22:47 | XMS_ITS | Clinical Summary ---
Author Organization [facility] Address [address] [place] [address] Care Team Providers Care Garment Presser Name Role Phone Unavailable Primary Care Provider Unavailabl e Source Comments [facility],non-owned Affiliates and Associated Physician Practices is amultiple site organization consisting of ambulatory clinics and hospital sitesin [place], [place], [place] and [place]. This disclosure is being madepursuant to the Care Everywhere program and may not contain all information available regarding this patient. Last updated 18.[facility] Allergies No known active allergies Active Problems Patient Care Coordination No te Formatting of this note migh t be different from the original. Negative AFP tetra; page 14 in records Problem Noted Date Diagnosed Date AMA (advanced maternal age) multigravida 35+ Obesity 09/14/2020 Resolved Problems Problem Noted Date Diagnosed Date Resolved Date Increased MSAFP 01/04/2014 04/28/2017 Overview (01/04/2014): 2.52 MoM Social History Tobacco Use Types Packs/Day Years Used Date Smoking Tobacco: Never Assessed Comments No Sex and Gender Information Value Date Recorded Sex Assigned at Not on file Legal Sex Female 2:02 PM ROOM SERVICE FOOD SERVER Gender Identity Not on file Sexual Orientation Not on file Last Filed Vital Signs Vital Sign Reading Time Taken Comments Blood Pressure 106/68 05/02/2014 8:25 AM CDT Pulse - - Temperature 36.2 C (97.2 F) 03/05/2021 3:09 PM CDT Respiratory Rate - - Oxygen Saturation - - Inhaled Oxygen Concentration - - Weight - - Height - - Body Mass Index - - Plan of Treatment Health Maintenance Due Date Last Done Comments LIPID TESTING 1982 MAMMOGRAM 1982 HIV SCREENING 1997 HEPATITIS C SCREENING 02/01/2000 DTAP/TDAP/TD VACCINES (1 - Tdap) 2001 HEPATITIS B VACCINE (1 of 3 - 19+ 3-dose series) 2001 HPV VACCINE (1 - 3-dose SCDM series) 2009 COVID-19 VACCINE (1 - 2023-2 5 season) 2024 DEPRESSION SCREENING 11/16/2024 INFLUENZA VACCINE (#1) 2025 0, 01/15/2017 ZOSTER VACCINE (1 of 2) 02/06/2032 HIB VACCINE Aged Out No longer eligi ble based on patient's age to complete this topic MENINGOCOCCAL (Group B) VACCINE SHARED DECISION-MAKING Aged Out No longer eligible based on patient's age to complete this topic MENINGOCOCCAL GROUPS A/C/Y/W VACCINE Aged Out No longer eligible b ased on patient's age to complete this topic PNEUMOCOCCAL VACCINE Aged Out No long er eligible based on patient's age to complete this topic Insurance MEDICAID - [place] [facility]
--- OUTSIDE RECORDS SUMMARY | 2025-06-18 22:47 | XMS_ITS | Referral Summary ---
Author Organization [facility] Address [address] [place] [id number] Care Team Providers Care Rv Mechanic Name Role Phone Evelyn Patel Primary Care [...] on file Legal Sex Female 6:38 PM CLAIM MANAGER Gender Identity Not on file Sexual Orientation Not on file Last Filed Vital Signs Vital Sign Reading Time Taken Comments Blood Pressure 133/83 10/23/2022 2:28 PM CLAIM MANAGER Pulse 54 10/23/2022 2:28 PM CLAIM MANAGER Temperature 37 C (98.6 F) 10/23/2022 11:01 AM CLAIM MANAGER Respiratory Rate 16 10/23/2022 2:28 PM CLAIM MANAGER Oxygen Saturation 100% 10/23/2022 2:28 PM CLAIM MANAGER Inhaled Oxygen Concentration - - Weight 93 kg (205 lb) 10/23/2022 11:01 AM CLAIM MANAGER Height 154.9 cm (5' 1) 10/23/2022 11:01 AM CLAIM MANAGER Body Mass Index 38.73 10/23/2022 11:01 AM CLAIM MANAGER Plan of Treatment Not on file Insurance [facility] Care Teams Rv Mechanic Relationship Specialty Start Date End Date Evelyn Patel PA [address] [place] [id number] PCP - General Physician Tableau Administrator 10/23/22
--- OUTSIDE RECORDS SUMMARY | 2025-06-18 22:47 | XMS_ITS | Clinical Summary ---
Author Organization [facility] Address [facility]ly [facility] [place] [address] Care Team Providers Care Cargo Inspector Name Role Phone None, Provider MD Primary Care Provider Unavaila ble Allergies No known active allergies Medications ibuprofen (MOTRIN) 600 MG tablet Take 1 tablet (600 mg total) by mouth every 6 (six) hours as needed. 20 tablet 04/24/2024 Active Social History Tobacco Use Types Packs/Day Years Used Date Smoking Tobacco: Some Days Cigarettes Smokeless Tobacco: Never Tobacco Cessation:Ready to Q uit: Not Asked; Counseling Given: Not Answered Alcohol Use Standard Drinks/Week Comments Yes 0 (1 standard drink = 0.6 oz pur e alcohol) rarely Comments No Sex and Gender Information Value Date Recorded Sex Assigned at Not on file Legal Sex Female 8:32 PM CDT Gender Identity Not on file Sexual Orientation Not on file Last Filed Vital Signs Vital Sign Reading Time Taken Comments Blood Pressure 137/85 04/24/2024 2:59 PM CDT Pulse 72 04/24/2024 2:59 PM CDT Temperature 36.9 C (98.4 F) 04/24/2024 2:59 PM CDT Respiratory Rate 20 04/24/2024 2:59 PM CDT Oxygen Saturation 100% 04/24/2024 2:59 PM CDT Inhaled Oxygen Concentration - - Weight 90.7 kg (200 lb) 04/24/2024 2:59 PM CDT Height 154.9 cm (5' 1) 04/24/2024 2:59 PM CDT Body Mass Index 37.79 04/24/2024 2:59 PM CDT Plan of Treatment Health Maintenance Due Date Last Done Comments Cervical Cancer Screening Pap Smear (Age 30 to 64) Every 3 Years 1982 Annual Physical 1985 Hepatitis C 02/06/2000 Hepatitis B Vaccines (1 of 3 - 19+ 3-dose series) 2001 Pneumococcal Vaccine: Pediatrics (0 to 5 Years) and At-Risk Patients (6 to 49 Years) (1 of 2 - PCV) 2001 HPV Vaccines (1 - 3-dose SCDM series) 2009 Cervical Cancer Screening Pap with HPV Testing (Age 30 to 64) Every 5 Years 02/06/2012 Cervical Cancer Screening with HPV 02/06/2012 Mammogram Screening 2022 COVID-19 Vaccine ( - season) 2024 01/02/2022, 12/12/2021 DTaP, Tdap and Td Vaccines (4 - Td or Tdap) 01/07/2031 01/07/2021, 06/18/2017, 07/13/2016, Additional history exists Meningococcal B Vaccine Aged Out No l onger eligible based on patient's age to complete this topic Meningococcal Vaccine Aged Out No josephine jelena eligible based on patient's age to complete this topic RSV Immunizations Under 20 Months Aged Out No longer eligible based on patient's age to complete this topic Insurance [employer] Care Teams Cargo Inspector Relationship Specialty Start Date End Date None, Provider, MD PCP - General UNKNOWN PHYSICIAN SPECIALTY 04/24/24
--- NOTE | 2025-06-19 00:29 | PC.NURSE ---
Patients daughter comes to desk repeatedly asking how much longer, when are we next? Patients daughter informed that patients go back to rooms based off acuity and that she will be called for a room when one is available an that wait times are not allowed to be given due to ever changing times.
--- OUTSIDE RECORDS SUMMARY | 2025-06-19 01:23 | XMS_ITS | Referral Summary ---
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 Gender Identity Not on file Sexual Orientation Not on file Last Filed Vital Signs Vital Sign Reading Time Taken Comments Blood Pressure 133/83 10/23/2022 2:28 PM RUBBER FLAP TUBER MACHINE OPERATOR Pulse 54 10/23/2022 2:28 PM RUBBER FLAP TUBER MACHINE OPERATOR Temperature 37 C (98.6 F) 10/23/2022 11:01 AM RUBBER FLAP TUBER MACHINE OPERATOR Respiratory Rate 16 10/23/2022 2:28 PM RUBBER FLAP TUBER MACHINE OPERATOR Oxygen Saturation 100% 10/23/2022 2:28 PM RUBBER FLAP TUBER MACHINE OPERATOR Inhaled Oxygen Concentration - - Weight 93 kg (205 lb) 10/23/2022 11:01 AM RUBBER FLAP TUBER MACHINE OPERATOR Height 154.9 cm (5' 1) 10/23/2022 11:01 AM RUBBER FLAP TUBER MACHINE OPERATOR Body Mass Index 38.73 10/23/2022 11:01 AM RUBBER FLAP TUBER MACHINE OPERATOR Plan of Treatment Not on file Insurance [facility] Care Teams Bowling Alley Mechanic Relationship Specialty Start Date End Date Evleyn Patel PA [address] [place] [id number] PCP - General Physician Supervisor Painting Department 10/23/22
--- OUTSIDE RECORDS SUMMARY | 2025-06-19 01:23 | XMS_ITS | Clinical Summary ---
Author Organization [facility] Address [facility] [place] [address] Care Team Providers Care Structural Iron Erector Name Role Phone None, Provider MD Primary [...] complete this topic Insurance [employer] Care Teams Structural Iron Erector Relationship Specialty Start Date End Date None, Provider, MD PCP - General UNKNOWN PHYSICIAN SPECIALTY 04/24/24
--- OUTSIDE RECORDS SUMMARY | 2025-06-19 01:23 | XMS_ITS | Clinical Summary ---
Author Organization [facility] [employer] Address [address] [place] [address] Care Team Providers Care Gsa Coordinator Name Role Phone Unavailable Primary Care Provider Unavailabl e Source Comments [facility] [employer],non-owned Affiliates and Associated Physician Practices is amultiple site organization consisting of ambulatory clinics and hospital sitesin [place], [place], [place] and [place]. This disclosure is being madepursuant to the Care Everywhere program and may not contain all information available regarding this patient. 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
--- OUTSIDE RECORDS SUMMARY | 2025-06-19 01:23 | XMS_ITS | Clinical Summary ---
Author Organization [facility] Address [address] [place] [id number] Care Team Providers Care Merchandise Presentation Manager Name Role Phone Evelyn Patel Primary Care [...] on file Legal Sex Female 6:38 PM REGIONAL GEODETIC ADVISOR Gender Identity Not on file Sexual Orientation Not on file Last Filed Vital Signs Vital Sign Reading Time Taken Comments Blood Pressure 133/83 10/23/2022 2:28 PM REGIONAL GEODETIC ADVISOR Pulse 54 10/23/2022 2:28 PM REGIONAL GEODETIC ADVISOR Temperature 37 C (98.6 F) 10/23/2022 11:01 AM REGIONAL GEODETIC ADVISOR Respiratory Rate 16 10/23/2022 2:28 PM REGIONAL GEODETIC ADVISOR Oxygen Saturation 100% 10/23/2022 2:28 PM REGIONAL GEODETIC ADVISOR Inhaled Oxygen Concentration - - Weight 93 kg (205 lb) 10/23/2022 11:01 AM REGIONAL GEODETIC ADVISOR Height 154.9 cm (5' 1) 10/23/2022 11:01 AM REGIONAL GEODETIC ADVISOR Body Mass Index 38.73 10/23/2022 11:01 AM REGIONAL GEODETIC ADVISOR Plan of Treatment Health Maintenance Due Date [...] to complete this topic Insurance Care Teams Merchandise Presentation Manager Relationship Specialty Start Date End Date Evelyn Patel PA [address] [place] [id number] PCP - General Physician Auricular Detoxification Specialist 10/23/22
--- NOTE | 2025-06-19 01:28 | PC.NURSE ---
Pt was being registered and registration presented to this RN and stated that pt wants to leave because her [employer] insurance is no longer active. Pt ambulatory out of department with steady gait. Pt did not speak to staff upon departure.
== END 2025-06-19 01:33 | disposition left against medical advice (07) ==
PROVIDERS: Emergency Provider Student in an Organized Health Care Education/Training Program
DX: R51.9 Headache, unspecified (principal)
CPT/HCPCS: 99199